=== PATIENT | female | born 1990 | race Caucasian/White ===

== ENCOUNTER → 2016-11-27 | Outpatient (CLI) | payer OTHER ==
[2016-11-27 09:06] LABS: Basophils % (A) 1 %; CH 29.5; CHCM 32.4; Eosinophils # (A) 0.2 k/uL (0-0.7); Eosinophils % (A) 3 %; HCT 41.5 % (34.0-46.0); HDW 2.23; HGB 13.4 gm/dL (11.4-16.0); Luc # (Auto) 0.21; Luc % (Auto) 3; Lymphocytes # (A) 2.1 k/uL (1.0-4.8); Lymphocytes % (A) 27 %; MCH 29.4 pg (25.0-35.0); MCHC 32.2 g/dL (31.0-37.0); MCV 91.3 fL (80.0-100.0); Mean Platelet Volume 7.8; Monocytes # (A) 0.4 k/uL (0-1.0); Monocytes % (A) 5 %; Neutrophils # (A) 4.9 k/uL (1.3-7.7); Neutrophils % (A) 62 %; RBC 4.55 m/uL (3.80-5.40); RDW 13.4 % (11.5-15.5); WBC 7.8 k/uL (3.8-10.6); WBC (Perox) 8.38
== END | disposition home or self-care (01) ==
LOC: LABPAT 08:39
PROVIDERS: ATTEND Obstetrics & Gynecology
DX: Z01.812 Encounter for preprocedural laboratory examination (principal)
CPT/HCPCS: 85025

== ENCOUNTER 2016-12-03 06:43 | Day surgery (SDC) | payer OTHER ==
[2016-12-02 11:22] VITALS: BMI 19.9
[~2016-12-03 06:43] MED LIST: DEXAMETHASONE SOD PHOSPHATE 10 MG/ML 1 ML VIAL IV ONE; LACTATED RINGERS 1,000 ML IV SCH; LIDOCAINE 1% 20 ML VIAL (10MG/ML) FOR IV START INTRADERMA PRN; MIDAZOLAM 2 MG/2 ML VIAL IV PRN; Pre Op ABX Message 1 EACH MISC MISCELLANE ONE; SCOPOLAMINE 1.5MG/72HR PATCH TRANSDERM ONE
[2016-12-03] MEDS ORDERED: LIDOCAINE 1% 20 ML VIAL (10MG/ML) FOR IV START INTRADERMA ONE (07:02)
[2016-12-03] MEDS: ONDANSETRON 4 MG/2 ML VIAL IVP ONE ×2 (07:05→09:03)
[2016-12-03] MEDS ORDERED: ROCURONIUM BROMIDE 10 MG/ML 10 ML VIAL IV ONE (07:43)
[2016-12-03] MEDS ORDERED: PROPOFOL 10 MG/ML 20 ML VIAL IV ONE (07:43)
[2016-12-03] MEDS ORDERED: SUCCINYLCHOLINE CHLORIDE 100 MG/5 ML SYR IV ONE (07:43)
[2016-12-03] MEDS ORDERED: LIDOCAINE 1% INJ 10MG/ML (20 ML MDV) ONE (07:43)
[2016-12-03] MEDS ORDERED: KETOROLAC 30 MG/ML 1 ML VIAL ONE (07:43)
[2016-12-03] MEDS ORDERED: MIDAZOLAM 2 MG/2 ML VIAL ONE (07:43)
[2016-12-03] MEDS ORDERED: NEOSTIGMINE 1 MG/ML 10 ML VIAL ONE (07:43)
[2016-12-03] MEDS ORDERED: fentaNYL (PF) 50 MCG/ML 2 ML AMP ONE (07:43)
[2016-12-03] MEDS ORDERED: GLYCOPYRROLATE 0.2 MG/ML 2 ML VIAL ONE (07:43)
--- NOTE | 2016-12-03 07:43 | P.HPOB ---
History of Present Illness H&P Date: 12/03/16 Chief Complaint: Family planning Patient is a 26-year-old female who has completed her family planning desires permanent sterilization. Risks/benefits/alternatives to the laps up tubal occlusion were discussed with the patient in detail and all questions are answered for her prior to proceeding to the operating room. On physical exam vital signs are stable and afebrile. Heart regular, lungs clear, extremities without pain. Abdomen soft positive bowel sounds are noted. Assessment family planning. Plan lap sharp tubal occlusion with Filshie clips Past Medical History Past Medical History: No Reported History History of Any Multi-Drug Resistant Organisms: None Reported Past Surgical History: No Surgical Hx Reported Additional Past Surgical History / Comment(s): D&C 1 yr. ago Past Anesthesia/Blood Transfusion Reactions: No Reported Reaction Past Psychological History: No Psychological Hx Reported Smoking Status: Current every day smoker Past Alcohol Use History: None Reported Additional Past Alcohol Use History / Comment(s): Smokes 1/2 ppd. Past Drug Use History: None Reported - Past Family History Father Family Medical History: Hypertension Medications and Allergies Home Medications Medication Instructions Recorded Confirmed Type No Known Home Medications [No 08/18/16 12/02/16 History Known Home Medications] Allergies Allergy/AdvReac Type Severity Reaction Status Date / Time No Known Allergies Allergy Verified 12/02/16 11:05 Exam Osteopathic Statement: *. No significant issues noted on an osteopathic structural exam other than those noted in the History and Physical/Consult. - Vital Signs Vital signs: Vital Signs Temp Pulse Resp BP Pulse Ox 12/03/16 06:54 98.2 F 69 16 128/64 98 - OBG Physical Exam Breast: both: normal (no masses) Abdomen: bowel sounds normal, no diffuse tenderness, no bruit present, no guarding noted, no hepatomegaly, no splenomegaly, no mass Vulva: both: normal Vagina: normal moisture, no discharge Cervix: no lesion, no discharge Uterus: normal size, normal contour Adnexa: both: normal Anus/Rectum: normal perianal skin, no rectal mass, no hemorrhoids, heme negative
[2016-12-03] MEDS ORDERED: BUPIVACAINE (PF) 0.25% 30 ML VIAL SQ ONE ×2 (07:48→07:59)
--- NOTE | 2016-12-03 08:13 | P.OP ---
Date of Procedure: 12/03/16 Preoperative Diagnosis: Family planning Postoperative Diagnosis: Same Procedure(s) Performed: Laparoscopic tubal ligation with Filshie clips Anesthesia: YARELIS Surgeon: Patric Mckeon Estimated Blood Loss (ml): 3 Urine output (ml): 20 Pathology: none sent Condition: stable Disposition: same day Operative Findings: Normal uterus tubes and ovaries Description of Procedure: Patient was taken the operating suite where a general anesthetic was found be adequate. She was prepped and draped in the normal sterile fashion placed in dorsal lithotomy position. Initially a speculum was inserted in the vagina and the anterior lip of cervix was identified and grasped with single-tooth tenaculum. An acorn manipulator was then inserted without difficulty and the speculum was removed. Red rubber cath was then used to drain the bladder of urine and this was then removed and gloves were changed and attention was turned to the abdominal portion procedure. Proxy 3 mL of quarter percent Marcaine were injected periumbilically and through this injected anesthetic a 5 mm skin incision was made. Using an optical trocar and sleeve the camera was inserted under direct visualization. Once peritoneal placement was assured gas was allowed to fully insufflate the abdomen and patient was placed in steep Trendelenburg position. A second port and sleeve were then inserted through an 8 mm skin incision 3 cm above the pubic symphysis. Observations pelvis were then done. Sloping tube were identified first the right tube the left tube had a physical applied 2 cm from uterine cornu. No bleeding is noted from the mesosalpinx therefore incidents removed and gas was left expel from the abdomen. 5 deep breaths were provided during this process. Once this was accomplished 4-0 Vicryl is used to reapproximate the skin and the remaining 7 mL of quarter percent Marcaine were injected around these incisions. Sponge, lap, needle counts were all correct 2. Patient tolerated surgery very well and was taken to the recovery room in stable condition. Plan - Discharge Summary New Discharge Prescriptions: Acetaminophen-Codeine 300-30mg [Tylenol #3] 1 tab PO Q4H PRN #30 tablet PRN Reason: Pain Ibuprofen [Motrin] 600 mg PO Q6HR PRN #30 tab PRN Reason: Pain Discharge Medication List Acetaminophen-Codeine 300-30mg [Tylenol #3] 1 tab PO Q4H PRN #30 tablet [Rx] Ibuprofen [Motrin] 600 mg PO Q6HR PRN #30 tab 12/03/16 [Rx] Follow up Appointment(s)/Referral(s): Patric Mckeon DO [Doctor of Osteopathic Medicine] - 2 Weeks Activity/Diet/Wound Care/Special Instructions: Heavy lifting, limit stairs and driving and pelvic rest. If any high temperatures, heavy bleeding, or severe pain call my office Discharge Disposition: HOME SELF-CARE
[2016-12-03 08:22] VITALS: TEMP 97.5
[2016-12-03] MEDS: HYDROmorphone 1 MG/ML 1 ML SYRINGE IVP PRN ×4 (08:34→09:02)
[2016-12-03] MEDS ORDERED: LACTATED RINGERS 1,000 ML IV ONE (09:20)
[2016-12-03] MEDS ORDERED: Acetaminophen-Codeine 300-30mg TAB PO ONE (09:32)
[2016-12-03 10:39] VITALS: RESP 18
[2016-12-03 10:59] VITALS: BP 110/75; PULSE 68
== END 2016-12-03 11:36 | disposition home or self-care (01) ==
LOC: OR 06:43
PROVIDERS: ATTEND Obstetrics & Gynecology
DX: Z30.2 Encounter for sterilization (principal); F17.200 Nicotine dependence, unspecified, uncomplicated
CPT/HCPCS: 81025; 58671; J2250; J1100; J2710; J2405; J2001; J3010; J1885; J1170; J0330; J2704

== ENCOUNTER 2018-03-17 18:26 | Emergency (ER) | payer OTHER ==
[2018-03-17 18:41] VITALS: BP 121/78; PULSE 83; RESP 16; TEMP 98.2
[2018-03-17] MEDS ORDERED: PENICILLIN V POTASSIUM 250 MG TAB PO STA (19:46)
[2018-03-17] MEDS ORDERED: Acetaminophen-Codeine 300-30mg TAB PO STA (19:46)
--- NOTE | 2018-03-17 19:51 | ED ---
General Adult HPI - General Chief complaint: Dental/Oral Stated complaint: Facial infection Time Seen by Provider: 03/17/18 18:45 Source: patient, RN notes reviewed Mode of arrival: ambulatory Limitations: no limitations - History of Present Illness Initial comments: 27-year-old female presents to the emergency department for a chief complaint of dental pain times one week. Patient states she has a cracked tooth and believes she has a dental infection. Patient denies any fevers or chills at home. Patient denies any pain or stiffness in the neck. Patient denies headache. Patient has tried Motrin for pain which is not working. Patient denies any chance of . Patient has no other complaints at this time including shortness of breath, chest pain, abdominal pain, nausea or vomiting, headache, or visual changes. - Related Data Previous Rx's Medication Instructions Recorded Acetaminophen-Codeine 300-30mg 1 tab PO Q4H PRN #30 tablet 12/03/16 [Tylenol #3] Ibuprofen [Motrin] 600 mg PO Q6HR PRN #30 tab 12/03/16 Acetaminophen-Codeine 300-30mg 1 tab PO Q6HR PRN #10 tablet 03/17/18 [Tylenol #3] Ibuprofen [Motrin] 600 mg PO Q8HR PRN #20 tab 03/17/18 Penicillin V Potassium [Pen Vee K] 500 mg PO Q6H 10 Days tablet 03/17/18 Allergies Allergy/AdvReac Type Severity Reaction Status Date / Time No Known Allergies Allergy Verified 03/17/18 18:41 Review of Systems ROS Statement: Those systems with pertinent positive or pertinent negative responses have been documented in the HPI. ROS Other: All systems not noted in ROS Statement are negative. Past Medical History Past Medical History: No Reported History History of Any Multi-Drug Resistant Organisms: None Reported Past Surgical History: No Surgical Hx Reported Past Anesthesia/Blood Transfusion Reactions: No Reported Reaction Past Psychological History: No Psychological Hx Reported Smoking Status: Current every day smoker Past Alcohol Use History: None Reported Past Drug Use History: None Reported - Past Family History Father Family Medical History: Hypertension General Exam Limitations: no limitations General appearance: alert, in no apparent distress Head exam: Present: atraumatic, normocephalic, normal inspection Eye exam: Present: normal appearance, PERRL, EOMI. Absent: scleral icterus, conjunctival injection, periorbital swelling ENT exam: Present: mucous membranes moist, TM's normal bilaterally, normal external ear exam, other (Patient appears to have 1 cm x 1 cm abscess on the left lower jaw. When inside of mouth was inspected there was no drainable abscess noted.). Absent: normal oropharynx (Tooth 20 appears cracked. ) Neck exam: Present: normal inspection, full ROM. Absent: tenderness, meningismus, lymphadenopathy Respiratory exam: Present: normal lung sounds bilaterally. Absent: respiratory distress, wheezes, rales, rhonchi, stridor Cardiovascular Exam: Present: regular rate, normal rhythm, normal heart sounds. Absent: systolic murmur, diastolic murmur, rubs, gallop, clicks Course Vital Signs 03/17/18 18:38 Temperature 98.2 F Pulse Rate 83 Respiratory 16 Rate Blood Pressure 121/78 O2 Sat by Pulse 100 Oximetry Medical Decision Making - Medical Decision Making 27-year-old female presents to the emergency department for a chief complaint of dental pain times one week. Patient has tried Motrin for pain which is not helping. Patient denies any fevers, chills, or pain and stiffness in the neck. Patient is afebrile in the emergency department and vitals are within normal limits. On exam patient does have a cracked tooth 19. Patient does also have some swelling on the left lower jaw measuring 1 m x 1 cm. No internal drainable abscess noted. No signs of cellulitic infection. Patient likely has a dental infection. Patient was given Tylenol 3 and penicillin in the emergency department. She was also given a prescription for these and Motrin. She will take Motrin for pain and Tylenol 3 for severe pain. Patient was educated to come back if she has any worsening symptoms or develops a fever for a soft tissue computed tomography scan. Patient agrees to go home without the computed tomography scan at this point and return if it worsens to have one. Patient states she wants to follow up with [facility]. I offered to give her the number for the community [facility] but she states she does not want to go there. Patient was also referred to a primary care provider. Disposition Clinical Impression: Dental infection Disposition: HOME SELF-CARE Condition: Good Instructions: Dental Abscess (ED) Additional Instructions: Please take antibiotic as directed. Please take Motrin for pain. If pain is severe take Tylenol 3. Follow up with dentist in 1-2 days. Return to the emergency department if you have any worsening symptoms. Prescriptions: Acetaminophen-Codeine 300-30mg [Tylenol #3] 1 tab PO Q6HR PRN #10 tablet PRN Reason: Pain Ibuprofen [Motrin] 600 mg PO Q8HR PRN #20 tab PRN Reason: Pain Penicillin V Potassium [Pen Vee K] 500 mg PO Q6H 10 Days tablet Is patient prescribed a controlled substance at d/c from ED?: Yes When asked, does pt state using other controlled substances?: No If prescribed controlled substance>3 days was MAPS reviewed?: Prescribed <3 Days If opioid is for acute pain is fill amount 7 days or less?: Yes If Rx opioid, was Start Talking consent form obtained?: Yes Referrals: Mason Caldwell MD [STAFF PHYSICIAN] - 1-2 days Time of Disposition: 19:49
== END 2018-03-17 20:01 | disposition home or self-care (01) ==
LOC: EC 18:26
DX: K04.7 Periapical abscess without sinus (principal); F17.200 Nicotine dependence, unspecified, uncomplicated
CPT/HCPCS: 99282

== ENCOUNTER 2025-04-22 01:24 | Emergency (ER) | payer OTHER ==
[2025-04-22] MEDS: LIDOCAINE 1% INJ 10MG/ML (20 ML MDV) SQ ONE (02:18)
--- NOTE | 2025-04-22 03:09 | ED ---
Skin/Abscess/FB HPI - General Source: patient, RN notes reviewed Mode of arrival: ambulatory Limitations: no limitations <Timmy Graham - Last Filed: 04/22/25 03:07> <Mason Luke - Last Filed: 04/22/25 13:50> - General Chief complaint: Skin/Abscess/Foreign Body Stated complaint: Spider bite Time Seen by Provider: 04/22/25 01:41 - Related Data Previous Rx's Medication Instructions Recorded Acetaminophen-Codeine 300-30mg 1 tab PO Q4H PRN #30 tablet 12/03/16 [Tylenol #3] Ibuprofen [Motrin] 600 mg PO Q6HR PRN #30 tab 12/03/16 Acetaminophen-Codeine 300-30mg 1 tab PO Q6HR PRN #10 tablet 03/17/18 [Tylenol #3] Ibuprofen [Motrin] 600 mg PO Q8HR PRN #20 tab 03/17/18 Penicillin V Potassium [Pen Vee K] 500 mg PO Q6H 10 Days tablet 03/17/18 Ibuprofen [Motrin] 600 mg PO Q8HR PRN #30 tab 04/22/25 Mupirocin 2% Oint [Bactroban 2% 1 applic TOPICAL BID #22 gm 04/22/25 Oint] Sulfamethox-Tmp 800-160Mg [Bactrim 1 each PO Q12HR #20 tab 04/22/25 Ds] Allergies Allergy/AdvReac Type Severity Reaction Status Date / Time No Known Allergies Allergy Verified 04/22/25 01:27 Review of Systems ROS Other: All systems not noted in ROS Statement are negative. <Timmy Graham - Last Filed: 04/22/25 03:07> ROS Other: All systems not noted in ROS Statement are negative. <Mason Luke - Last Filed: 04/22/25 13:50> ROS Statement: Those systems with pertinent positive or pertinent negative responses have been documented in the HPI. Past Medical History Past Medical History: No Reported History History of Any Multi-Drug Resistant Organisms: None Reported Past Surgical History: No Surgical Hx Reported Past Anesthesia/Blood Transfusion Reactions: No Reported Reaction Past Psychological History: No Psychological Hx Reported Smoking Status: Vaper Past Alcohol Use History: None Reported Past Drug Use History: None Reported - Past Family History Father Family Medical History: Hypertension <Timmy Graham - Last Filed: 04/22/25 03:07> General Exam Limitations: no limitations General appearance: alert, in no apparent distress Head exam: Present: atraumatic, normocephalic, normal inspection Eye exam: Present: normal appearance, PERRL, EOMI. Absent: scleral icterus, conjunctival injection, periorbital swelling ENT exam: Present: normal exam, mucous membranes moist Neck exam: Present: normal inspection. Absent: tenderness, meningismus, lymphadenopathy Respiratory exam: Present: normal lung sounds bilaterally. Absent: respiratory distress, wheezes, rales, rhonchi, stridor Cardiovascular Exam: Present: regular rate, normal rhythm, normal heart sounds. Absent: systolic murmur, diastolic murmur, rubs, gallop, clicks GI/Abdominal exam: Present: soft, normal bowel sounds. Absent: distended, tenderness, guarding, rebound, rigid Extremities exam: Present: normal inspection, full ROM, normal capillary refill. Absent: tenderness, pedal edema, joint swelling, calf tenderness Back exam: Present: normal inspection Neurological exam: Present: alert, oriented X3, CN II-XII intact Psychiatric exam: Present: normal affect, normal mood Skin exam: Present: warm, dry, intact, normal color, other (Erythematous and tender 3 cm abscess noted on left gluteus.). Absent: rash <Timmy Graham Filed: 04/22/25 03:07> Course Vital Signs 04/22/25 04/22/25 01:27 03:55 Temperature 97.8 F 97.9 F Pulse Rate 50 L 76 Respiratory 14 16 Rate Blood Pressure 122/86 119/77 O2 Sat by Pulse 100 100 Oximetry Procedures - Incision & Drainage Consent Obtained: verbal consent Indication: Abscess Site: buttock Size (cm): 3 Anesthetic Used: lidocaine 1% Amount (mLs): 7 I&D Cleaning Method: Alcohol Wipe Sterile Field Used?: No Scalpel Used: #11 Ultrasound used: No Needle Aspiration Performed?: No Irrigation Performed?: Yes I&D Drainage Obtained: Pus, Blood, Serous Insertion of drain: No Culture Obtained?: Yes Complications: pain Patient Tolerated Procedure: well, no complications <SantosTimmy Chepe Filed: 04/22/25 03:07> Medical Decision Making <Santos,Timmy - Last Filed: 04/22/25 03:07> - Medical Decision Making Was pt. sent in by a medical professional or institution (, [facility], RESEARCH WORKER [employer]IA, urgent care, hospital, or group home...) When possible be specific @ -[No] Did you speak to anyone other than the patient for history (EMS, parent, family, police, friend...)? What history was obtained from this source @ -[No] Did you review nursing and triage notes (agree or disagree)? Why? @ -[I reviewed and agree with nursing and triage notes] Were old charts reviewed (outside hosp., previous admission, EMS record, old EKG, old radiological studies, urgent care reports/EKG's, group home records)? Report findings @ -[No old charts were reviewed] Differential Diagnosis (chest pain, altered mental status, abdominal pain women, abdominal pain men, vaginal bleeding, weakness, fever, dyspnea, syncope, headache, dizziness, GI bleed, back pain, seizure, CVA, palpatations, mental health, musculoskeletal)? @ -Differential Musculoskeletal Muscular strain, contusion, ligament sprain, fracture, arthritis, septic arthritis, bursitis, cellulitis, muscle spasm, nerve compression, DVT, arterial occlusion, herpes zoster, electrolyte abnormality, tumor.... This is not meant to be in all inclusive list EKG interpreted by me (3pts min.). @ -Not done X-rays interpreted by me (1pt min.). @ -[None done] CT interpreted by me (1pt min.). @ -[None done] U/S interpreted by me (1pt. min.). @ -[None done] What testing was considered but not performed or refused? (CT, X-rays, U/S, labs)? Why? @ -[None] What meds were considered but not given or refused? Why? @ -[None] Did you discuss the management of the patient with other professionals (professionals i.e. [facility] Landeros, [employer], lab, RT, psych nurse, social service director, optimization consultant, teacher, chief merchandising officer, showcase trimmer)? Give summary @ -[No] Was smoking cessation discussed for >3mins.? @ -[No] Was critical care preformed (if so, how long)? @ -[No] Were there social determinants of health that impacted care today? How? (Homelessness, low income, unemployed, alcoholism, drug addiction, transportation, low edu. Level, literacy, decrease access to med. care, longterm, rehab)? @ -[No] Was there de-escalation of care discussed even if they declined (Discuss DNR or withdrawal of care, Hospice)? DNR status @ -[No] What co-morbidities impacted this encounter? (DM, HTN, Smoking, COPD, CAD, Cancer, CVA, ARF, Chemo, Hep., AIDS, mental health diagnosis, sleep apnea, morbid obesity)? @ -[None] Was patient admitted / discharged? Hospital course, mention meds given and route, prescriptions, significant lab abnormalities, going to OR and other pertinent info. @ -[hospital course] Undiagnosed new problem with uncertain prognosis? @ -[No] Drug Therapy requiring intensive monitoring for toxicity (Heparin, Nitro, Insulin, Cardizem)? @ -[No] Were any procedures done? @ -[No] Diagnosis/symptom? @ -Gluteal abscess Acute, or Chronic, or Acute on Chronic? @ -Acute Uncomplicated (without systemic symptoms) or Complicated (systemic symptoms)? @ -Uncomplicated Side effects of treatment? @ -[No] Exacerbation, Progression, or Severe Exacerbation? @ -[No] Poses a threat to life or bodily function? How? (Chest pain, [place], OR, pneumonia, PE, COPD, DKA, ARF, appy, cholecystitis, CVA, Diverticulitis, Homicidal, Suicidal, threat to staff... and all critical care pts) @ -[No] (Timmy Graham) Disposition Is patient prescribed a controlled substance at d/c from ED?: No Time of Disposition: 03:09 <Timmy Graham - Last Filed: 04/22/25 03:07> <Mason Luke - Last Filed: 04/22/25 13:50> Clinical Impression: Gluteal abscess Disposition: HOME SELF-CARE Condition: Good Instructions (If sedation given, give patient instructions): Abscess Incision and Drainage (ED), Abscess (ED) Additional Instructions: Apply warm compress for 10 minutes up to 4 times daily. Keep area clean with antibacterial soap and water followed by application of antibiotic ointment and bandage at least twice daily. Prescriptions: Sulfamethox-Tmp 800-160Mg [Bactrim Ds] 1 each PO Q12HR #20 tab Mupirocin 2% Oint [Bactroban 2% Oint] 1 applic TOPICAL BID #22 gm Ibuprofen [Motrin] 600 mg PO Q8HR PRN #30 tab PRN Reason: Pain Referrals: None,Stated [Primary Care Provider] - 1-2 days Katelin Adan MD [REFERRING] - 1-2 days
[2025-04-22] MEDS: SULFAMETHOX-TMP 800-160MG 1 EACH TAB PO STA (03:24)
[2025-04-22] MEDS: IBUPROFEN 600 MG TAB PO STA (03:24)
[2025-04-22 04:01] VITALS: BP 119/77; PULSE 76; RESP 16; TEMP 97.9
== END 2025-04-22 03:55 | disposition home or self-care (01) ==
LOC: EC 01:24
DX: L02.31 Cutaneous abscess of buttock (principal); F17.290 Nicotine dependence, other tobacco product, uncomplicated; W57.XXXA Bitten or stung by nonvenomous insect and other nonvenomous arthropods, initial encounter
CPT/HCPCS: 87070; 87205; 99283; 10060; J2003